=== PATIENT | female | born 1950 | race Caucasian/White ===

== ENCOUNTER 2017-01-21 21:24 | Inpatient (IN) | payer OTHER, MEDICARE ==
[~2017-01-21] VITALS: Ht 165.1 cm; Wt 65.8 kg
--- NOTE | ~2017-01-21 | EKG ---
[address] [employer] 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
[2017-01-21 21:24] VITALS: BP 143/83
[2017-01-21 23:06] LABS: ABSOLUTE NEUTROPHILS 7.2 thou/uL (1.4-8.2); BASOPHILS 0.3 % (0.0-2.0); EOSINOPHILS 0.3 % (0.0-3.0); HEMATOCRIT 23.6 % (37.0-47.0); HEMOGLOBIN 7.9 gm/dL (12.0-15.0); MCH 31.3 pg (26.0-34.0); MCHC 33.6 g/dL (28.0-37.0); MCV 93.3 fL (80.0-100.0); MONOCYTES 5.8 % (1.0-8.0); PLATELET COUNT 316 thou/uL (150-400); POLYS 79.6 % (36.0-66.0); RBC 2.53 mil/uL (4.20-5.00); RDW 15.5 % (10.5-14.5); WBC 9.1 thou/uL (4.0-11.0)
[2017-01-21 23:14] LABS: MANUAL DIFF NO
[2017-01-21 23:21] LABS: CALCIUM 8.2 mg/dL (8.5-10.1); CREATININE 0.7 mg/dL (0.6-1.0)
[2017-01-21 23:26] LABS: ALBUMIN 3.1 g/dL (3.4-5.0); TOTAL BILIRUBIN 0.2 mg/dL (<0.1-1.0); TOTAL PROTEIN 6.8 g/dL (6.4-8.2)
[2017-01-21 23:32] VITALS: BP 137/74
[2017-01-22 00:06] LABS: PROTIME 9.9 Seconds (9.3-11.4)
[2017-01-22] MEDS ORDERED: ACETAMINOPHEN500 M1 PO (00:48)
[2017-01-22] MEDS ORDERED: XANAX 0.25 MG0.25 MG PO (00:49)
[2017-01-22] MEDS ORDERED: AZATHIOPRINE50 MG PO ×2 (00:51→00:52)
[2017-01-22] MEDS ORDERED: LUBRICANT EYE1 EACH OP (00:53)
[2017-01-22] MEDS ORDERED: KEFLEX500 MG PO (00:54)
[2017-01-22] MEDS ORDERED: FLEXERIL PO (00:55)
[2017-01-22] MEDS ORDERED: FOLIC ACID1 MG PO (00:56)
[2017-01-22] MEDS ORDERED: HYDROCODONE-APA1 TA1 PO (00:56)
[2017-01-22] MEDS ORDERED: LOMOTIL TABLET1 EACH PO (00:56)
[2017-01-22] MEDS ORDERED: HYDROXYCHLOROQ200 M1 PO (00:57)
[2017-01-22] MEDS ORDERED: METHOTREXATE 22.5 MG INJECTION (00:58)
[2017-01-22] MEDS ORDERED: OMEPRAZOLE20 M2 PO (00:59)
[2017-01-22] MEDS ORDERED: PREDNISONE 5 MG5 M1 PO (01:00)
[2017-01-22] MEDS ORDERED: SYSTANE 0.3-0.1 EACH OP (01:01)
[2017-01-22] MEDS ORDERED: BIOTENE MOIST44.3 ML MM (01:02)
[2017-01-22 04:01] VITALS: BP 128/72
[2017-01-22 05:17] LABS: HEMOGLOBIN 7.4 gm/dL (12.0-15.0); MCH 31.3 pg (26.0-34.0); MCHC 33.5 g/dL (28.0-37.0); MCV 93.4 fL (80.0-100.0); RBC 2.36 mil/uL (4.20-5.00); RDW 15.1 % (10.5-14.5); WBC 7.7 thou/uL (4.0-11.0)
[2017-01-22 07:29] VITALS: BP 128/77
[2017-01-22 15:46] VITALS: BP 142/80
[2017-01-22 18:40] VITALS: BP 140/94
[2017-01-23 04:00] VITALS: BP 135/79
[2017-01-23 05:35] LABS: HEMATOCRIT 23.7 % (37.0-47.0); HEMOGLOBIN 8.1 gm/dL (12.0-15.0); MCH 31.9 pg (26.0-34.0); MCHC 34.2 g/dL (28.0-37.0); MCV 93.2 fL (80.0-100.0); RBC 2.54 mil/uL (4.20-5.00); RDW 14.9 % (10.5-14.5); WBC 6.7 thou/uL (4.0-11.0)
[2017-01-23 09:05] VITALS: BP 131/80
[2017-01-23 19:39] VITALS: BP 138/80
[2017-01-24 04:20] VITALS: BP 127/78
[2017-01-24 05:56] LABS: HEMATOCRIT 25.2 % (37.0-47.0); HEMOGLOBIN 8.5 gm/dL (12.0-15.0); MCH 31.4 pg (26.0-34.0); MCHC 33.6 g/dL (28.0-37.0); MCV 93.4 fL (80.0-100.0); RBC 2.7 mil/uL (4.20-5.00); RDW 15.4 % (10.5-14.5); WBC 7.3 thou/uL (4.0-11.0)
[2017-01-24 08:30] VITALS: BP 137/84
[2017-01-24 15:53] VITALS: BP 130/85
[2017-01-24 19:23] VITALS: BP 126/73
[2017-01-25 04:00] VITALS: BP 118/69
[2017-01-25 07:56] VITALS: BP 132/78
[2017-01-25] MEDS ORDERED: HYDROCODONE-APA1 TA1 PO (13:48)
[2017-01-25 14:39] VITALS: BP 132/78
[2017-01-25 14:44] VITALS: BP 132/78
[2017-01-25 14:47] VITALS: BP 132/78
== END 2017-01-25 15:15 | disposition home health service (06) | DRG 536 ==
LOC: ER 21:24 → EROBS 22:28 → 5S 22:28
PROVIDERS: Hospitalist; Nurse Practitioner Family
DX: S72.111A Displaced fracture of greater trochanter of right femur, initial encounter for closed fracture (principal); D62 Acute posthemorrhagic anemia; M97.01XA Periprosthetic fracture around internal prosthetic right hip joint, initial encounter; S72.121A Displaced fracture of lesser trochanter of right femur, initial encounter for closed fracture; M25.461 Effusion, right knee; Z96.641 Presence of right artificial hip joint; W18.30XA Fall on same level, unspecified, initial encounter; Z90.49 Acquired absence of other specified parts of digestive tract; Z90.710 Acquired absence of both cervix and uterus; Z90.721 Acquired absence of ovaries, unilateral; Z88.2 Allergy status to sulfonamides; Z79.899 Other long term (current) drug therapy; Y93.89 Activity, other specified; Y92.89 Other specified places as the place of occurrence of the external cause; Y99.8 Other external cause status
CPT/HCPCS: 10086

== ENCOUNTER → 2017-05-27 | Outpatient (CLI) | payer OTHER, MEDICARE ==
[~2017-05-27] MED LIST: ACETAMINOPHEN500 M1 PO; AZATHIOPRINE50 MG PO; BIOTENE MOIST44.3 ML MM; FLEXERIL PO; FOLIC ACID1 MG PO; HYDROCODONE-APA1 TA1 PO; HYDROXYCHLOROQ200 M1 PO; KEFLEX500 MG PO; LOMOTIL TABLET1 EACH PO; LUBRICANT EYE1 EACH OP; METHOTREXATE 22.5 MG INJECTION; OMEPRAZOLE20 M2 PO; PREDNISONE 5 MG5 M1 PO; SYSTANE 0.3-0.1 EACH OP; XANAX 0.25 MG0.25 MG PO
== END ==
LOC: CAT 11:23
DX: S72.91XD Unspecified fracture of right femur, subsequent encounter for closed fracture with routine healing (principal); X58.XXXD Exposure to other specified factors, subsequent encounter

== ENCOUNTER 2017-08-01 20:29 | Inpatient (IN) | payer OTHER, MEDICARE ==
[~2017-08-01] VITALS: Ht 165.1 cm; Wt 63.5 kg
--- NOTE | ~2017-08-01 | HC ---
[facility] [place] [address] CONSULTATION Name: ANDRE LINDO Room #: 242-P [facility] IN M.R.#: [id number] Admission: 08/01/17 Attend Phys: Christian Guillermo MD Discharge: Date of : 50 Report #: [id number] THIS REPORT FOR: //name// CC: Christian TREVIÑO PCP PULMONARY CONSULTATION REFERRING PHYSICIAN: Dr. Guillermo. REASON FOR REFERRAL: Acute respiratory failure. HISTORY OF PRESENT ILLNESS: The patient is a 67-year-old white female who presented to Emergency Room with altered mental status. She was found dyspneic, hypoxic. She was subsequently intubated. A Pulmonary consultation was requested. She was also found to be influenza A positive. Chest x-ray shows a right lower lobe infiltrates. PAST MEDICAL HISTORY: Notable for rheumatoid arthritis, ulcerative colitis and anxiety disorder. PAST SURGICAL HISTORY: Past history of bowel obstruction, appendectomy, total hysterectomy, left oophorectomy and right hip surgery. ALLERGIES: SULFA, REACTIONS NOT SPECIFIED. MEDICATIONS: Home medication list reviewed. This includes prednisone 5 mg once a day, methotrexate, hydroxychloroquine, azithromycin, omeprazole, folic acid, Flexeril and lorazepam. FAMILY HISTORY: Noncontributory. SOCIAL HISTORY: She is a lifetime nonsmoker. Denies any alcohol use. REVIEW OF SYSTEMS: Deferred as the patient is intubated. PHYSICAL EXAMINATION: GENERAL: On exam, she is sedated. VITAL SIGNS: Her temperature maximum is 100.3 degrees Fahrenheit, pulse is 120, respiratory rate is 38, blood pressure 140/69 mmHg and saturation 100%. HEENT: Normocephalic, atraumatic. NECK: Supple, without lymphadenopathy or thyromegaly. CHEST: Breath sounds are fair anteriorly, without any obvious rales or wheezes. CARDIOVASCULAR: Normal S1, S2. There are no murmurs or gallops. There is no [facility] [address] [place] [address] CONSULTATION Name: ANDRE LINDO Room #: 242-[facility] IN [facility]#: [id number] Admission: 08/01/17 Attend Phys: Christian Guillermo MD Discharge: Date of : 50 Report #: [id number] JVD. There is no carotid bruit. Pulses are 2+/4+ bilaterally. ABDOMEN: Soft, nontender. No organomegaly or masses felt. GENITOURINARY: Deferred. RECTAL: Deferred. EXTREMITIES: There is no edema, cyanosis or clubbing. LABORATORY DATA: Chest x-ray again shows mild right lower lobe infiltrates. ET tube is in the appropriate position. The patient is positive for C. diff toxin. Legionella and Streptococcus antigens were negative. The patient is positive for influenza A. U/A shows few bacteria. Sodium 139, potassium 3.5, chloride 103, CO2 is 20, BUN is 15 and creatinine 0.9. Liver function enzymes are mildly elevated. WBC 11,900, hemoglobin is 12 and platelets are normal. No significant bandemia. Albumin 3.2. Arterial blood gas revealed pH of 7.30, pCO2 of 28 and pO2 of 400 on FiO2 100%. IMPRESSION: 1. Acute hypoxic respiratory failure in this 67-year-old white female due to influenza A and possible concomitant bacterial pneumonia involving the right lower lobe. 2. Metabolic acidosis due to severe sepsis. 3. Hyponatremia, hypokalemia. 4. Rheumatoid arthritis, on methotrexate and Plaquenil. 5. Ulcerative colitis. 6. Clostridium difficile colitis. RECOMMENDATIONS: I agree with broad-spectrum antibiotics. Continue mechanical ventilation. The patient should be monitored closely for possible opportunistic infection given the immunosuppressed status. DVT and GI prophylaxis will be addressed. Discussed findings with the patient's family. <ELECTRONICALLY SIGNED> By: Sage Turcios MD 08/03/17 1548 1638 0004 Sage Turcios MD /nt
--- NOTE | ~2017-08-01 | EKG ---
[place] [address] [facility] [facility] [place] [address] ELECTROCARDIOGRAM REPORT Name: RON LINDOILIA Steve Room #: 170-12 ADM IN M.R.#: [id number] Admission: 08/01/17 Attend Phys: Christian Guillermo MD Discharge: Date of : 50 Report #: [id number] THIS REPORT FOR: //name// [facility] ED Test Date: 2017-08-01 Test Time: 21:20:05 Pat Name: ANDRE LINDO Department: Room: 170 Gender: F Internet Marketing Manager: MZOOK : 1950 Requested By: Mary Ellis Order Number: [id number] MD: Jason Vázquez Measurements Intervals [place] Rate: 121 P: 53 WV: 122 QRS: 68 QRSD: 86 T: -4 QT: 311 QTc: 442 Interpretive Statements Sinus tachycardia Abnormal R-wave progression, early transition Nonspecific ST segment abnormality Compared to ECG 01/21/2017 22:30:[address] segment abnormality is now present Electronically Signed On 08-02-2017 8:53:10 [employer] by Jason Vázquez [email or web address] <ELECTRONICALLY SIGNED> By: Jason Vázquez MD, [facility] 08/02/17 0853 19 19 Jason Vázquez MD, [facility] /EPI
--- NOTE | ~2017-08-01 | HC ---
[facility] [address] CONSULTATION Name: ANDRE LINDO Room #: 448-P ADM IN M.R.#: [id number] Admission: 08/01/17 Attend Phys: Christian Guillermo MD Discharge: Date of : 50 Report #: [id number] THIS REPORT FOR: //name// CC: Christian TREVIÑO PCP DATE OF SERVICE: 08/02/2017 REFERRING PROVIDER: Christian Guillermo MD REASON FOR CONSULTATION: Respiratory failure. CHIEF COMPLAINT: Shortness of breath. HISTORY OF PRESENT ILLNESS: Our group was asked to see the patient in consultation while hospitalized at [facility]. I was called at 4:02 to provide consultation. The patient is seen in the ICU and discussed with family as well as with nursing. She is a 67-year-old woman who presented to the emergency department last evening with altered mental status and had been having some cough and generalized weakness. states she went to work, she has not been eating or drinking well for 2 days, came back home, was poorly responsive and confused, brought to the Emergency Department, she was noted to have an acidosis as well as a pulmonary infiltrate, influenza positive, was treated overnight with fluids and antibiotics; however, became more tachypneic this morning, required noninvasive positive pressure ventilation with BiPAP and then subsequently intubated. The patient is apparently on chronic steroids and possible other immunosuppressives for ulcerative colitis and rheumatoid arthritis, but the family cannot tell me what medication she is on at this time. The patient had diarrhea in the emergency department. C. diff toxin was also positive. Upon transfer to the ICU, we were contacted to come and evaluate the patient. The patient has already received antibiotics as described, IV fluids, 2 liter bolus at 125 an hour. ALLERGIES: INCLUDE SULFA. PAST MEDICAL HISTORY: 1. History of ulcerative colitis "burned out" per prior records. 2. History of rheumatoid arthritis. 3. History of femur fracture. 4. Remote history of tobacco use. 5. History of immunosuppressive therapy for above autoimmune diseases. 6. History of left nephrectomy. 7. History of total hip arthroplasty for septic necrosis. 8. History of abdominal hysterectomy and oophorectomy. [facility] [address] [place] [address] CONSULTATION Name: ANDRE LINDO Room #: 448-P [facility] IN [facility].#: [id number] Admission: 08/01/17 Attend Phys: Christina Guillermo MD Discharge: Date of : 50 Report #: [id number] OUTPATIENT MEDICATIONS: Family is uncertain of the medications the patient is taking, outpatient medications per Emergency Department reported as: 1. Azathioprine. 2. Xanax. 3. Tylenol. 4. Lubricant eyedrops. 5. Flexeril. 6. Lomotil. 7. Folic acid. 8. Hydroxychloroquine. 9. Methotrexate. 10. Prednisone. 11. Biotin. 12. Omeprazole. SOCIAL HISTORY: Remote smoker, quitting over 20 years ago. No alcohol consumption. Currently retired. FAMILY HISTORY: Unobtainable. REVIEW OF SYSTEMS: Except as described, unobtainable due to the patient's current status, being sedated on mechanical ventilator. PHYSICAL EXAMINATION: VITAL SIGNS: Afebrile, pulse 100, respiratory rate is 24 set on the ventilator, and blood pressure 107/64. GENERAL: This is an elderly woman, sedated, in no distress. ENT: Endotracheal tube in place. NECK: Supple, no lymphadenopathy. LUNGS: Minimal basilar crackles, no wheezes. CARDIOVASCULAR: Heart regular. No murmurs noted. ABDOMEN: Soft. Diminished bowel sounds. EXTREMITIES: Reveal diminished pulses, no edema. INTEGUMENT: No significant rash identified. LABS: White blood cell count 12,000, hemoglobin 11, hematocrit 34, and platelet count 283. Sodium 138, potassium 3.0, chloride 107, bicarbonate 15, BUN is 9, creatinine 0.5, glucose 129, and calcium 7.3. Most recent arterial blood gas on assist control, tidal volume 450, FiO2 100%, PEEP of 5, rate of 24, reveals pH 7.30, pCO2 of 20, pO2 of 401, bicarbonate 14. C. diff toxin is positive. Urinalysis positive for urine ketones, slight blood, bilirubin, no leukocytes. Liver enzymes only minimally elevated on initial labs. IMPRESSION: 1[place] [address] CONSULTATION Name: ANDRE LINDO Room #: 448-P [facility] IN M.R.#: [id number] Admission: 08/01/17 Attend Phys: Christian Guillermo MD Discharge: Date of : 50 Report #: [id number] 2. Pulmonary infiltrates consistent with community-acquired pneumonia or even a post-influenza infection most likely right lower lobe on radiographs. 3. Clostridium difficile colitis. 4. History of ulcerative colitis. 5. History of rheumatoid arthritis. 6. Immunocompromised status. 7. Severe metabolic acidosis given the constellation above. SUGGEST: 1. ICU care. 2. Continue mechanical ventilatory support. 3. Continue high rate IV fluids, consider changing to Ringer's lactate due to acidosis and hypokalemia. 4. Check CT abdomen and pelvis, no IV contrast given, the patient has a single kidney. 5. Infectious disease consultation to assist with management of multiple infectious processes in this immunocompromised host. 6. Follow up arterial blood gas and radiograph in a.m. 7. Central venous catheter insertion, we prefer PICC line at this point. 8. Consider beginning sepsis protocol. The patient has already received IV fluids and antibiotics, we would trend laboratories. 9. Additional recommendations to follow. Total critical care time was 45 minutes, not including any procedures, the patient was seen and evaluated due to nursing report, no pulmonary intervention to this point. <ELECTRONICALLY SIGNED> By: Orlin Gore MD 08/10/17 1824 1654 0831 Orlin Gore MD /nt
--- NOTE | ~2017-08-01 | HC ---
[facility] [place] [address] CONSULTATION Name: ANDRE LINDO Room #: 448-P [facility] IN .R.#: [id number] Admission: 08/01/17 Attend Phys: Christian Guillermo MD Discharge: Date of : 50 Report #: [id number] THIS REPORT FOR: //name// CC: Christian TREVIÑO [facility] DATE OF SERVICE: 08/08/2017 HISTORY OF PRESENT ILLNESS: The patient is a 67-year-old white female originally admitted with acute mental status changes, confused, incontinent, was noted to have multiple diarrheal stools. She had acute respiratory failure, was noted to have MSSA pneumonia, sepsis, was intubated and mechanically ventilated for acute hypoxic respiratory failure. She also was noted to have C. diff colitis. She has gradually improved, has been extubated, feeling much better. She has been on occasion is up on 4 liters nasal prong O2. She is currently on room air. We are seeing her in rehabilitation medicine consultation. PAST MEDICAL AND SURGICAL HISTORY: Includes rheumatoid arthritis, ulcerative colitis, and bowel obstruction. She was immunosuppressed with her noted comorbidities. She has had a bowel obstruction, right hip fracture without surgery, total hysterectomy, left ovary removed. PAST SURGICAL HISTORY: As noted above. ALLERGIES: SULFA IS LISTED. HABITS: No history of tobacco or alcohol abuse. SOCIAL HISTORY: Lives in a house with her , used a cane or walker, one step. Her is retired, but he goes out into the country every other day per his history. There is a [id number] that is retired that could assist as well. REVIEW OF SYSTEMS: Did not offer any current complaints of chest pain, shortness of breath, or abdominal discomfort. She used to use a walker or a cane for her right femur fracture, but was no longer utilizing that prior to admission. Denied any focal distal lower extremity or proximal lower extremity pain complaints. PHYSICAL EXAMINATION: GENERAL: A 67-year-old white female, in no obvious distress. The patient is alert. VITAL SIGNS: Last recorded temperature is 97.7, pulse 94, respirations 20, blood pressure 157/72. HEENT: Appeared to be benign. [address] [address] CONSULTATION Name: ANDRE LINDO Room #: 448-P [facility] IN ..#: [id number] Admission: 08/01/17 Attend Phys: Christian Guillermo MD Discharge: Date of : 50 Report #: [id number] NEUROLOGIC: Cranial nerves are grossly intact. Facies are symmetric. She appears appropriate with basic conversational speech. She has functional range of motion of both upper extremities with strength of grade 4+/5. DTRs are trace to 1. Lower extremities, no focal calf swelling, functional range of motion with strength of grade 4 to 4+/5. DTRs are trace to 1. She did transfer today with standby assistance and ambulated 110 feet min assist. ASSESSMENT: A 67-year-old white female with the following problem list: 1. Acute mental status changes with encephalopathy that has improved. 2. Dysphagia, still currently on nectar thickened liquids. 3. Methicillin-susceptible Staphylococcus aureus pneumonia. 4. Sepsis. 5. Acute hypoxemic respiratory failure. 6. Influenza A. 7. Clostridium difficile colitis. 8. History of rheumatoid arthritis. 9. History of ulcerative colitis. 10. Immunosuppressed status. PLAN: She is improving with overall functional mobility and ADLs. Speech therapy is working with her as she is still on the nectar thickened liquids. She does not desire to do any inpatient rehabilitation and her is here as well as her [id number] and they note that they would be able to assist her and be with her if needed within the home setting. They are open to some home healthcare. She is progressing in therapies and would seem reasonable that she should be able to return directly home with home healthcare in the near future as she further stabilizes medically. Again, she is not desiring of an acute rehab stay and appears to be progressing well with her functional therapies. I would anticipate she would be able to be discharged directly home with home healthcare, but we will continue to follow for now. Discussion was held with the patient and her and [id number]. <ELECTRONICALLY SIGNED> By: José Ahmadi MD 08/09/17 1109 1317 4515 José Ahmadi MD /[facility]
--- NOTE | ~2017-08-01 | HC ---
[facility] [place] [address] CONSULTATION Name: ANDRE LINDO Room #: 242-P [facility] IN M.R.#: [id number] Admission: 08/01/17 Attend Phys: Christian Guillermo MD Discharge: Date of : 50 Report #: [id number] THIS REPORT FOR: //name// CC: Christian Barnett NO PCP INFECTIOUS DISEASE CONSULTATION ATTENDING PHYSICIAN: Christian Guillermo MD HISTORY OF PRESENT ILLNESS: The patient is a 67-year-old white woman admitted through the Emergency Room with altered mental status and significant dyspnea. The patient was recently evaluated in the Emergency Room with history of abdominal pain. The patient was discharged home, to be reevaluated in the Emergency Room on 08/01 and admitted with right-sided pneumonia. She goes on developing respiratory failure requiring orotracheal intubation and mechanical ventilation. Her studies revealed right basilar infiltrate, positive stool for Clostridium difficile toxin. ID opinion requested regarding these issues. PAST MEDICAL HISTORY: Positive for possible rheumatoid arthritis and treatment, the patient's family believes at [facility] where she is receiving prednisone, methotrexate and hydroxychloroquine. She is status post appendectomy, hysterectomy, left oophorectomy. Question history of ulcerative colitis as well. ALLERGIES: SULFA DRUGS. MEDICATIONS: She is on treatment with chlorhexidine oral care, potassium and magnesium supplementation per protocol, subcutaneous enoxaparin, methylprednisolone 62.5 mg IV every 8 hours, acetaminophen 650 p.o. q.i.d. -- feeding tube q.i.d. p.r.n. She is receiving oseltamivir 75 mg b.i.d., Rocephin 1 gram IV daily and azithromycin 500 mg IV daily. SOCIAL HISTORY: Unable to obtain, patient intubated. FAMILY HISTORY: Unable to obtain. REVIEW OF SYSTEMS: Unable to obtain. PHYSICAL EXAMINATION: GENERAL: A well-developed woman, not toxic looking, sedated, no distress, intubated through oral cavity. VITAL SIGNS: Presenting following vital signs, temperature 100.3 on 08/01 at , afebrile thereafter, pulse 100, respirations 24, BP 107/64. HEENMT: Head normocephalic, atraumatic. Pupils reactive. Mouth unable to [facility] [address] [place] [address] CONSULTATION Name: ANDRE LINDO Room #: 242-P [facility] IN [facility].#: [id number] Admission: 08/01/17 Attend Phys: Christian Guillermo MD Discharge: Date of : 50 Report #: [id number] examine because of orotracheal intubation. NECK: Supple. LUNGS: Rhonchi, crackles, right lung base. HEART: S1, S2. No gallop or murmur. ABDOMEN: With surgical scars, soft, no masses or megaly. PELVIC AND RECTAL: Deferred. The patient has Prado catheter in place as well as rectal tube in place with liquid stools draining freely. EXTREMITIES: Reveal no clubbing, cyanosis, pretibial edema. NEUROLOGIC: Unable to evaluate. LABORATORY DATA: Sodium 138, potassium 3, chloride 107, BUN 9, creatinine 0.5, glucose 129, calcium 7.3. On admission, her albumin is 3.2 g/dL. A urine toxicologic screen is negative. The white blood cell count on admission is 11,900, hemoglobin 12 g/dL and platelets 291,000. Repeat CBC today revealed a white blood cell count had jumped up to 17,900, hemoglobin has dropped to 9.5 g/dL and platelets are 238,000 with white blood cell count differential revealed 95% segmented neutrophils. The MRSA screen negative. The C. difficile toxin assay positive. The urinalysis revealed 1+ protein, 2+ ketones, 1+ bilirubin, positive ETO test and 2+ blood. The microscopic exam revealed bacteriuria. ABGs on admission revealed pH 7.386, pCO2 of 28, pO2 of 123, bicarbonate 16.5. Lactate 1.06. These set of gases is on nonrebreathing mask at 100% O2. MICROBIOLOGY DATA: Urine culture on 06/30/2017 revealed greater than 100,000 colonies of E. coli and extended beta lactamase organism resistant to ceftriaxone. Sputum culture obtained on 08/02 revealed many Staphylococcus aureus, presumptive MSSA. The nasopharyngeal smear is positive for influenza antigen A. RADIOLOGY EVALUATION: Chest x-ray revealed right basilar pulmonary infiltrate. A CT scan of the abdomen and pelvis revealed fatty infiltration of the liver, gallstones, basilar pulmonary atelectasis, minimal infiltrate, small gas collection anterior subcutaneous fat, possibly from subcutaneous injection. ASSESSMENT: 1. Pneumonia, right lung base, possibly related to methicillin-sensitive Staphylococcus aureus. 2. Influenza A infection. 3. Clostridium difficile colitis. 4. Recent Escherichia coli urinary tract infection, extended spectrum beta-lactamase resistant to ceftriaxone. 5. Immunosuppressed host. Receives methotrexate, prednisone and hydroxychloroquine for rheumatoid arthritis. 6. Hypokalemia. 7. Fatty liver. 8. Gallstones with abnormal urinalysis, indicating possibility of recent passage of gallstone. [address] [address] CONSULTATION Name: ANDRE LINDO Room #: 242-P ADM IN .R.#: [id number] Admission: 08/01/17 Attend Phys: Christian Guillermo MD Discharge: Date of : 50 Report #: [id number] SUGGESTIONS: We will continue coverage with azithromycin. We will discontinue Rocephin in view of previous isolation of ESBL organism. We will start meropenem 1 gram IV every 8 hours. With positive stool for C. difficile toxin, we will add oral vancomycin [address] Guillermo, thank you for requesting my suggestions in the care of your patient. <ELECTRONICALLY SIGNED> By: Edgardo Sinha MD 08/04/17 0959 1059 05 Edgardo Sinha MD /nt
[~2017-08-01 20:29] MED LIST changes: +HYDROCODONE-AP1 EAC6 PO; +KEFLEX500 M1 PO; +PHENERGAN 25 MG25 M1 PO
[2017-08-01 20:30] VITALS: BP 133/167
[2017-08-01 21:16] LABS: HCO3 16.5 mmol/L (22.0-26.0); PCO2 28.2 mmHg (35.0-45.0); PO2 123.5 mmHg (80.0-100.0); pH 7.386 (7.360-7.450); sO2 98.5 % (92.0-98.0)
[2017-08-01 22:03] LABS: ABSOLUTE NEUTROPHILS 9.4 thou/uL (1.4-8.2); BASOPHILS 0.8 % (0.0-2.0); EOSINOPHILS 0.1 % (0.0-3.0); HEMATOCRIT 36.9 % (37.0-47.0); LYMPHOCYTES 12.5 % (24.0-44.0); MCH 28.8 pg (26.0-34.0); MCHC 32.5 g/dL (28.0-37.0); MCV 88.6 fL (80.0-100.0); MONOCYTES 7.1 % (1.0-8.0); PLATELET COUNT 291 thou/uL (150-400); POLYS 79.5 % (36.0-66.0); RBC 4.16 mil/uL (4.20-5.00); WBC 11.9 thou/uL (4.0-11.0)
[2017-08-01 22:13] LABS: ANION GAP 16 mmol/L (7-16); BUN 15 mg/dL (7-18); CALCIUM 8.1 mg/dL (8.5-10.1); CHLORIDE 103 mmol/L (98-107); CO2 20 mmol/L (21-32); CREATININE 0.9 mg/dL (0.6-1.0); GLUCOSE 110 mg/dL (74-106); POTASSIUM 3.5 mmol/L (3.5-5.1); SODIUM 139 mmol/L (136-145)
[2017-08-01 22:22] LABS: ALBUMIN 3.2 g/dL (3.4-5.0); SGOT 48 U/L (15-37); SGPT 49 U/L (30-65); TOTAL BILIRUBIN 0.2 mg/dL (<0.1-1.0); TOTAL PROTEIN 7.2 g/dL (6.4-8.2); TROPONIN-I < 0.04 ng/mL (<0.06)
[2017-08-01 23:04] VITALS: BP 105/61; BP 141/71
[2017-08-01 23:46] LABS: URINE BILIRUBIN 1+ (Negative); URINE BLOOD 2+ (Negative); URINE CLARITY CLEAR; URINE COLOR YELLOW; URINE GLUCOSE-RANDOM* NEGATIVE (Negative); URINE KETONES 2+ (Negative); URINE LEUKOCYTES NEGATIVE (Negative); URINE NITRITE NEGATIVE (Negative); URINE PROTEIN (DIPSTICK) 1+ (Negative); URINE SPECIFIC GRAVITY >= 1.030 (1.005-1.035); URINE UROBILINOGEN 0.2 E.U./dl (0.2-1.0)
[2017-08-01 23:54] LABS: AMP/METHAMP Negative (Negative); BARBITURATES Negative (Negative); BENZODIAZEPINES Negative (Negative); COCAINE Negative (Negative); ICTOTEST (BILI CONFIRMATORY) Positive (Negative); METHADONE Negative (Negative); OPIATES Negative (Negative); PCP Negative (Negative)
[2017-08-02] VITALS (16 sets, daily range): BP systolic 100–141; BP diastolic 64–73
[2017-08-02 00:04] LABS: BACTERIA 1-9 Few /HPF (None Seen); CASTS None Seen /LPF (None Seen); CRYSTALS None Seen /LPF (None Seen); MUCUS 0-3 Light strn/LPF (None Seen); SQUAMOUS 0-3 Few /LPF (0-3); URINE RBC 0-2 Rare /HPF (0-2); URINE WBC None Seen /HPF (0-5)
[2017-08-02 04:28] LABS: BE(vivo) -8.1 mmol/L (-2 to +3); PO2 79.3 mmHg (80.0-100.0)
[2017-08-02 04:31] LABS: PCO2 24.8 mmHg (35.0-45.0)
[2017-08-02 06:20] LABS: HEMATOCRIT 34.6 % (37.0-47.0); HEMOGLOBIN 11.2 gm/dL (12.0-15.0); MCH 28.7 pg (26.0-34.0); MCHC 32.4 g/dL (28.0-37.0); MCV 88.7 fL (80.0-100.0); RBC 3.9 mil/uL (4.20-5.00); RDW 17.4 % (10.5-14.5); WBC 11.7 thou/uL (4.0-11.0)
[2017-08-02 06:27] LABS: CALCIUM 7.3 mg/dL (8.5-10.1); CREATININE 0.5 mg/dL (0.6-1.0)
[2017-08-02 06:42] LABS: BE(vivo) -11.1 mmol/L (-2 to +3); HCO3 13.8 mmol/L (22.0-26.0); PCO2 28.2 mmHg (35.0-45.0); PO2 401.1 mmHg (80.0-100.0); sO2 99.8 % (92.0-98.0)
[2017-08-02 06:43] LABS: pH 7.307 (7.360-7.450)
[2017-08-02 19:36] LABS: MAGNESIUM 1.9 mg/dL (1.8-2.4); POTASSIUM 3.1 mmol/L (3.5-5.1)
[2017-08-03] VITALS (24 sets, daily range): BP systolic 85–149; BP diastolic 52–79
[2017-08-03 05:15] LABS: BE(vivo) -9.2 mmol/L (-2 to +3); HCO3 14.8 mmol/L (22.0-26.0); PCO2 26.9 mmHg (35.0-45.0); PO2 94.3 mmHg (80.0-100.0); pH 7.359 (7.360-7.450); sO2 97.1 % (92.0-98.0)
[2017-08-03 07:54] LABS: BASOPHILS 0.1 % (0.0-2.0); HEMATOCRIT 29.2 % (37.0-47.0); HEMOGLOBIN 9.5 gm/dL (12.0-15.0); LYMPHOCYTES 3.1 % (24.0-44.0); MCH 28.8 pg (26.0-34.0); MCHC 32.7 g/dL (28.0-37.0); MCV 88.1 fL (80.0-100.0); MONOCYTES 1.5 % (1.0-8.0); PLATELET COUNT 238 thou/uL (150-400); POLYS 95.3 % (36.0-66.0); RBC 3.32 mil/uL (4.20-5.00); RDW 17.5 % (10.5-14.5); WBC 17.9 thou/uL (4.0-11.0)
[2017-08-03 08:04] LABS: CREATININE 0.4 mg/dL (0.6-1.0); POTASSIUM 3.1 mmol/L (3.5-5.1)
[2017-08-04] VITALS (21 sets, daily range): BP systolic 89–159; BP diastolic 53–108
[2017-08-04 04:54] LABS: ABSOLUTE NEUTROPHILS 18.8 thou/uL (1.4-8.2); BASOPHILS 0.1 % (0.0-2.0); MCH 29.1 pg (26.0-34.0); MCHC 33.3 g/dL (28.0-37.0); MCV 87.5 fL (80.0-100.0); MONOCYTES 2.3 % (1.0-8.0); PLATELET COUNT 225 thou/uL (150-400); POLYS 94.6 % (36.0-66.0); RBC 3.08 mil/uL (4.20-5.00); RDW 17.9 % (10.5-14.5); WBC 19.8 thou/uL (4.0-11.0)
[2017-08-04 05:12] LABS: CALCIUM 7.9 mg/dL (8.5-10.1); CREATININE 0.3 mg/dL (0.6-1.0); POTASSIUM 3.4 mmol/L (3.5-5.1)
[2017-08-04 05:19] LABS: BE(vivo) -6.1 mmol/L (-2 to +3); PCO2 26.8 mmHg (35.0-45.0); PO2 74.7 mmHg (80.0-100.0); pH 7.419 (7.360-7.450); sO2 95.5 % (92.0-98.0)
[2017-08-04 11:23] LABS: BE(vivo) -3.4 mmol/L (-2 to +3); HCO3 19.4 mmol/L (22.0-26.0); PCO2 27.4 mmHg (35.0-45.0); PO2 87.8 mmHg (80.0-100.0); pH 7.468 (7.360-7.450); sO2 97.3 % (92.0-98.0)
[2017-08-05] VITALS (16 sets, daily range): BP systolic 123–168; BP diastolic 64–86
[2017-08-05 04:15] LABS: HEMATOCRIT 28.9 % (37.0-47.0); HEMOGLOBIN 9.5 gm/dL (12.0-15.0); MCH 28.4 pg (26.0-34.0); MCHC 32.8 g/dL (28.0-37.0); MCV 86.4 fL (80.0-100.0); RBC 3.35 mil/uL (4.20-5.00); RDW 17.6 % (10.5-14.5); WBC 17.5 thou/uL (4.0-11.0)
[2017-08-05 04:22] LABS: CREATININE 0.4 mg/dL (0.6-1.0)
[2017-08-05 04:25] LABS: POTASSIUM 2.5 mmol/L (3.5-5.1)
[2017-08-06 00:17] VITALS: BP 157/81
[2017-08-06 02:40] VITALS: BP 158/84
[2017-08-06 09:30] VITALS: BP 156/84
[2017-08-06 15:13] VITALS: BP 160/85
[2017-08-06 16:51] LABS: HEMATOCRIT 32.1 % (37.0-47.0); HEMOGLOBIN 10.6 gm/dL (12.0-15.0); MCH 28.6 pg (26.0-34.0); MCV 86.5 fL (80.0-100.0); PLATELET COUNT 242 thou/uL (150-400); RBC 3.71 mil/uL (4.20-5.00); RDW 17.6 % (10.5-14.5); WBC 10.9 thou/uL (4.0-11.0)
[2017-08-06 17:04] LABS: CALCIUM 8.1 mg/dL (8.5-10.1); CREATININE 0.5 mg/dL (0.6-1.0); POTASSIUM 3.2 mmol/L (3.5-5.1)
[2017-08-06 17:29] LABS: ABSOLUTE NEUTROPHILS 8.7 thou/uL (1.4-8.2); ATYPICAL LYMPHS 2 %; NUCLEATED RBCS 3 /100WBC
[2017-08-06 17:30] LABS: POLYCHROMASIA SLIGHT
[2017-08-06 20:32] VITALS: BP 171/93
[2017-08-07 05:08] VITALS: BP 135/82
[2017-08-07 08:20] VITALS: BP 148/84
[2017-08-07 10:54] LABS: CALCIUM 8.2 mg/dL (8.5-10.1); CREATININE 0.4 mg/dL (0.6-1.0); POTASSIUM 3.8 mmol/L (3.5-5.1)
[2017-08-07 17:08] VITALS: BP 138/83
[2017-08-07 21:21] VITALS: BP 176/88
[2017-08-08 03:14] VITALS: BP 145/74
[2017-08-08 05:23] LABS: HEMATOCRIT 32.6 % (37.0-47.0); HEMOGLOBIN 10.7 gm/dL (12.0-15.0); MCH 28.5 pg (26.0-34.0); MCHC 32.8 g/dL (28.0-37.0); MCV 86.9 fL (80.0-100.0); PLATELET COUNT 308 thou/uL (150-400); RBC 3.75 mil/uL (4.20-5.00); WBC 9.3 thou/uL (4.0-11.0)
[2017-08-08 05:30] LABS: CREATININE 0.5 mg/dL (0.6-1.0)
[2017-08-08 06:52] LABS: ABSOLUTE NEUTROPHILS 7.9 thou/uL (1.4-8.2); ANISOCYTOSIS 2+; ATYPICAL LYMPHS 1 %; MACROCYTES 1+; METAMYELOCYTES 1 %; MYELOCYTES 2 %; NUCLEATED RBCS 4 /100WBC; POLYCHROMASIA OCCASIONAL
[2017-08-08 08:36] VITALS: BP 157/72
[2017-08-08 14:38] LABS: CALCIUM 8.3 mg/dL (8.5-10.1); CREATININE 0.6 mg/dL (0.6-1.0); POTASSIUM 3.4 mmol/L (3.5-5.1)
[2017-08-08 15:58] VITALS: BP 137/92
[2017-08-08 20:32] VITALS: BP 148/83
[2017-08-09 03:09] LABS: HEMATOCRIT 29.9 % (37.0-47.0); HEMOGLOBIN 9.8 gm/dL (12.0-15.0); MCHC 32.9 g/dL (28.0-37.0); MCV 88.2 fL (80.0-100.0); PLATELET COUNT 268 thou/uL (150-400); RBC 3.39 mil/uL (4.20-5.00); WBC 9.7 thou/uL (4.0-11.0)
[2017-08-09 03:15] LABS: CALCIUM 7.9 mg/dL (8.5-10.1); CREATININE 0.5 mg/dL (0.6-1.0); POTASSIUM 3.5 mmol/L (3.5-5.1)
[2017-08-09 03:52] VITALS: BP 137/77
[2017-08-09 06:25] LABS: ABSOLUTE NEUTROPHILS 7.8 thou/uL (1.4-8.2); METAMYELOCYTES 2 %; MYELOCYTES 2 %; NUCLEATED RBCS 2 /100WBC
[2017-08-09 06:27] LABS: ANISOCYTOSIS 1+; LARGE PLATELETS OCCASIONAL; POLYCHROMASIA 1+; TOXIC GRANULATION 1+
[2017-08-09 08:00] VITALS: BP 155/84
[2017-08-09 16:00] VITALS: BP 138/81
[2017-08-09 20:43] VITALS: BP 134/84
[2017-08-10 03:21] VITALS: BP 137/72
[2017-08-10 07:36] VITALS: BP 153/64
[2017-08-10 11:37] VITALS: BP 136/71
[2017-08-10 14:47] VITALS: BP 134/84
[2017-08-10 20:06] VITALS: BP 142/73
[2017-08-11 05:09] VITALS: BP 126/78
[2017-08-11 08:29] VITALS: BP 123/67
[2017-08-11 11:40] LABS: HEMATOCRIT 32.9 % (37.0-47.0); HEMOGLOBIN 10.8 gm/dL (12.0-15.0); MCH 28.6 pg (26.0-34.0); MCHC 32.8 g/dL (28.0-37.0); MCV 87.3 fL (80.0-100.0); RBC 3.77 mil/uL (4.20-5.00); RDW 16.8 % (10.5-14.5); WBC 9.8 thou/uL (4.0-11.0)
[2017-08-11] MEDS ORDERED: PREDNISONE 5 MG5 M1 PO (11:46)
[2017-08-11] MEDS ORDERED: OMEPRAZOLE20 M2 PO (11:46)
[2017-08-11] MEDS ORDERED: ACIDOPHILUS1 EAC4 PO (11:46)
[2017-08-11 11:48] LABS: CALCIUM 8.2 mg/dL (8.5-10.1); CREATININE 0.4 mg/dL (0.6-1.0)
[2017-08-11 11:50] LABS: POTASSIUM 2.8 mmol/L (3.5-5.1)
[2017-08-11 16:34] VITALS: BP 128/80
[2017-08-11 17:33] LABS: CALCIUM 8.5 mg/dL (8.5-10.1); CREATININE 0.5 mg/dL (0.6-1.0); POTASSIUM 4.5 mmol/L (3.5-5.1)
[2017-08-11 20:01] VITALS: BP 117/66
[2017-08-12 04:52] VITALS: BP 114/80
[2017-08-12 05:00] LABS: HEMOGLOBIN 11.4 gm/dL (12.0-15.0); MCH 28.8 pg (26.0-34.0); MCHC 32.6 g/dL (28.0-37.0); MCV 88.5 fL (80.0-100.0); RBC 3.96 mil/uL (4.20-5.00); RDW 17.1 % (10.5-14.5); WBC 8.5 thou/uL (4.0-11.0)
[2017-08-12 05:09] LABS: CALCIUM 8.5 mg/dL (8.5-10.1); CREATININE 0.5 mg/dL (0.6-1.0); MAGNESIUM 2.2 mg/dL (1.8-2.4); POTASSIUM 4.5 mmol/L (3.5-5.1)
[2017-08-12 07:22] VITALS: BP 116/67
[2017-08-12] MEDS ORDERED: VANCOMYCIN HCL10 GM PO (09:19)
[2017-08-12] MEDS ORDERED: HYDROCODONE-AP1 EAC6 PO (09:20)
[2017-08-12 10:20] VITALS: BP 134/71
[2017-08-12 11:53] VITALS: BP 134/71
== END 2017-08-12 13:56 | disposition home or self-care (01) | DRG 871 ==
LOC: ER 20:29 → EROBS 22:34 → ICU 22:34 → EROBS 22:34 → ICU 08-02 15:40 → 4S 08-06 00:15
PROVIDERS: Family Medicine; Hospitalist; Internal Medicine; Internal Medicine Infectious Disease; Internal Medicine Pulmonary Disease; Nurse Practitioner Acute Care; Nurse Practitioner Family; Physician Assistant
DX: A41.9 Sepsis, unspecified organism (principal); J96.01 Acute respiratory failure with hypoxia; J10.08 Influenza due to other identified influenza virus with other specified pneumonia; J15.211 Pneumonia due to Methicillin susceptible Staphylococcus aureus; G92 Toxic encephalopathy; E87.1 Hypo-osmolality and hyponatremia; A04.72 Enterocolitis due to Clostridium difficile, not specified as recurrent; E87.4 Mixed disorder of acid-base balance; E87.0 Hyperosmolality and hypernatremia; N39.0 Urinary tract infection, site not specified; M06.9 Rheumatoid arthritis, unspecified; F41.9 Anxiety disorder, unspecified; R65.20 Severe sepsis without septic shock; K76.0 Fatty (change of) liver, not elsewhere classified; D64.9 Anemia, unspecified; B96.20 Unspecified Escherichia coli [E. coli] as the cause of diseases classified elsewhere; Z16.12 Extended spectrum beta lactamase (ESBL) resistance; K80.20 Calculus of gallbladder without cholecystitis without obstruction; G89.29 Other chronic pain; E87.6 Hypokalemia; Z96.641 Presence of right artificial hip joint; Z90.710 Acquired absence of both cervix and uterus; Z90.721 Acquired absence of ovaries, unilateral; Z90.49 Acquired absence of other specified parts of digestive tract; Z79.52 Long term (current) use of systemic steroids; Z79.899 Other long term (current) drug therapy; Z87.81 Personal history of (healed) traumatic fracture; Z87.891 Personal history of nicotine dependence; Z90.5 Acquired absence of kidney; Z87.19 Personal history of other diseases of the digestive system; Z88.2 Allergy status to sulfonamides
CPT/HCPCS: 10078; 10100; 27000

== ENCOUNTER → 2017-08-18 | Outpatient (CLI) | payer OTHER, MEDICARE ==
[~2017-08-18] MED LIST changes: +ACIDOPHILUS1 EAC4 PO; +VANCOMYCIN HCL10 GM PO
== END ==
LOC: RAD 15:04
DX: J18.9 Pneumonia, unspecified organism (principal); J98.11 Atelectasis; R91.8 Other nonspecific abnormal finding of lung field

== ENCOUNTER 2018-11-29 02:31 | Inpatient (IN) | payer OTHER, MEDICARE ==
[~2018-11-29] VITALS: Ht 167.6 cm; Wt 64.4 kg
[2018-11-29 02:32] VITALS: BP 121/71
[2018-11-29 03:06] LABS: HEMATOCRIT 36.8 % (37.0-47.0); MCH 27.7 pg (26.0-34.0); MCHC 32.6 g/dL (28.0-37.0); MCV 84.7 fL (80.0-100.0); PLATELET COUNT 280 thou/uL (150-400); RBC 4.34 mil/uL (4.20-5.00); RDW 18.7 % (10.5-14.5); WBC 17.2 thou/uL (4.0-11.0)
[2018-11-29 03:10] LABS: CREATININE 0.8 mg/dL (0.6-1.0); POTASSIUM 3.2 mmol/L (3.5-5.1)
[2018-11-29 03:16] LABS: ALBUMIN 3.2 g/dL (3.4-5.0); DIRECT BILIRUBIN 0.2 mg/dL (<0.1-0.3); TOTAL BILIRUBIN 0.9 mg/dL (<0.1-1.0); TOTAL PROTEIN 7.5 g/dL (6.4-8.2)
[2018-11-29 03:32] LABS: URINE BILIRUBIN NEGATIVE (Negative); URINE BLOOD 3+ (Negative); URINE CLARITY CLEAR; URINE COLOR YELLOW; URINE GLUCOSE-RANDOM* NEGATIVE (Negative); URINE KETONES 3+ (Negative); URINE LEUKOCYTES-REFLEX 1+ (Negative); URINE NITRITE-REFLEX POSITIVE (Negative); URINE PROTEIN (DIPSTICK) 2+ (Negative); URINE SPECIFIC GRAVITY 1.025 (1.005-1.035)
[2018-11-29 03:45] LABS: ABSOLUTE NEUTROPHILS 15.7 thou/uL (1.4-8.2)
[2018-11-29 03:49] LABS: ANISOCYTOSIS 2+; PLATELET ESTIMATE NORMAL; POLYCHROMASIA 1+
[2018-11-29 03:57] LABS: SQUAMOUS 0-3 Few /LPF (0-3); WBC CLUMPS Many (None Seen)
[2018-11-29 03:58] LABS: BACTERIA-REFLEX >30 Many /HPF (None Seen); CRYSTALS None Seen /LPF (None Seen); HYALINE CASTS 0-3 Few /LPF (None Seen); MUCUS 4-6 Moderate strn/LPF (None Seen)
[2018-11-29 05:35] VITALS: BP 125/66
[2018-11-29 06:00] VITALS: BP 99/56
[2018-11-29 07:30] VITALS: BP 108/66
--- NOTE | 2018-11-29 08:16 | EKG ---
[address] [address] ELECTROCARDIOGRAM REPORT Name: ANDRE LINDO Room #: 461-P ADM IN M.R.#: [id number] ������������������ Admission: 11/29/18 ������������������ Attend Phys: Phillip Salomon MD Discharge: ������������������ Date of : 50 Report #: [id number] ����������������������������������������������������������������� [id number] THIS REPORT FOR: //name// [facility] ED Test Date: 2018-11-29 Test Time: 02:35:58 Pat Name: ANDRE LINDO Department: Room: 461 Gender: F Plant Nursery Worker: BRET : 1950 Requested By: Ida Gamez Order Number: [id number] MD: Anshul Sinha Measurements Intervals [place] Rate: 119 P: 56 OR: 134 QRS: 73 QRSD: 91 T: -17 QT: 344 QTc: 485 Interpretive Statements Sinus tachycardia Motion artifact Borderline repolarization abnormality Compared to ECG 08/01/2017 21:20:05 Electronically Signed On 11-29-2018 8:16:05 CDT by Anshul Sinha [email or web address] ��������������������������������������������� <ELECTRONICALLY SIGNED> ���������������������������������������� By: Anshul Sinha MD ��������������������������������������������� 11/29/18 0816 0235 0235 Anshul Sinha MD /GUS
--- NOTE | 2018-11-29 09:07 | NUR ---
Nutrition: Pt admitted with AMS, pyelonephritis. Seen for underweight BMI of 17.5. Admission wt of 105 lbs is incorrect. Wt has since been updated accurrately to show 142 lbs. Wt stable over a year per hx. Also at usual of 140 lbs per pt. Ross has been poor since sx started on Tuesday. Still poor this morning. Pt agreed to supplement, will order. Low nutrition risk.
[2018-11-29 14:40] VITALS: BP 128/53
--- NOTE | 2018-11-29 14:42 | NUR ---
Chart reviewed and case discussed with the care team. Bedside assessment completed with the pt. Her sister and her niece were present. Pt's spouse went home to rest. The pt reports that she lives at home with her spouse and is normally independent with gait and adl's. She has one step to enter her home and everything is on the main level. She does have a FWW and Cane from a previous hip sx last year, but she does not use them currently. She has not had hh since that time either. She can not recall her pcp's name but believes she has an appt coming up in two weeks. Her spouse drives and is supportive. The pt's family at bedside indicate she is much clearer mental than upon arrival. She is being treated for pyelonephritis. Cm role introduced. Will ask for therapy evals and follow along should hh referral be indicated at [place].
[2018-11-29 19:25] VITALS: BP 118/61
--- NOTE | 2018-11-29 20:30 | NUR ---
PT ARRIVED TO UNIT DURING SHIFT CHANGE FROM ED. PT IS ALERT AND ORIENTED, FORGFUL AT TIMES. PT IS MONITORED ON TELE AND ABLE TO MAINTAIN 02 SAT >90 ON RA. PT COMPLAINS OF PAIN THAT IS UNRESOLVED AFTER FIRST DOSE OF PAIN MEDICATION GIVEN. CONTACTED DR AND DR GAVE NEWORDERS FOR PAIN MEDICATION THAT PT DOES STATE MORE WELL CONTROLS HER PAIN THAN THE PREVIOUS DOSE. PT AND FAMILY HAVE BEEN UPDATED ON POC AND DENY ANY QUESTIONS OR CONCERNS AT THIS TIME. VSS ASSESSMENT CHARTED. MAKING GOOD PROGRESS TOWARDS POC OF DC.
[2018-11-30 03:59] VITALS: BP 104/44
--- NOTE | 2018-11-30 05:02 | NUR ---
Pt. rested quietly at intervals during the night when checked on during frequent rounds. She c/o back pain and has been medicated for it (see emar) with some relief noted. Assisted up to the bathroom with walker. Bed alarm is on.
[2018-11-30 05:42] LABS: HEMATOCRIT 30.1 % (37.0-47.0); MCH 27.7 pg (26.0-34.0); MCHC 32.5 g/dL (28.0-37.0); MCV 85.4 fL (80.0-100.0); RBC 3.53 mil/uL (4.20-5.00); RDW 18.3 % (10.5-14.5); WBC 8.2 thou/uL (4.0-11.0)
[2018-11-30 05:45] LABS: HEMOGLOBIN 9.8 gm/dL (12.0-15.0)
[2018-11-30 05:48] LABS: CALCIUM 8.1 mg/dL (8.5-10.1); CREATININE 0.7 mg/dL (0.6-1.0); MAGNESIUM 1.7 mg/dL (1.8-2.4)
[2018-11-30 07:34] VITALS: BP 114/64
[2018-11-30 14:05] VITALS: BP 128/63
--- NOTE | 2018-11-30 17:17 | NUR ---
ASSUMED CARE OF PT AT APPROX 0700. PT IS ALERT AND ORIENTED X4, FORGETFUL AT TIMES. MONITORED ON TELE AND ABLE TO MAINTAIN 02 SAT >90 ON RA. COMPLAINS OF PAIN THAT IS PARTIALLY RELIEVED BY PRN PAIN MEDICATION. DENIES SOA, EVEN NON LABORED BREATHING. RECIEVED ORDER FOR DC OF TELE. PT IS IN STABLE CONDITION. REMAINS ON IV ANTBX. ASSESSMENT CHARTED. PATIENT HAS BEEN UPDATED ON POC AND DENIES ANY CURRENT CONCERNS OR QUESTIONS. WILL CONTINUE TO MONITOR.
[2018-11-30 20:22] VITALS: BP 133/63
[2018-12-01 05:17] LABS: HEMATOCRIT 29.7 % (37.0-47.0); HEMOGLOBIN 9.8 gm/dL (12.0-15.0); MCH 27.6 pg (26.0-34.0); MCHC 32.8 g/dL (28.0-37.0); RBC 3.54 mil/uL (4.20-5.00); RDW 18.2 % (10.5-14.5); WBC 3.7 thou/uL (4.0-11.0)
[2018-12-01 05:20] VITALS: BP 108/56
[2018-12-01 05:30] LABS: CALCIUM 8.4 mg/dL (8.5-10.1); CREATININE 0.5 mg/dL (0.6-1.0)
[2018-12-01 05:32] LABS: POTASSIUM 2.6 mmol/L (3.5-5.1)
--- NOTE | 2018-12-01 05:57 | NUR ---
ASSUMED CARE OF PT AT 1900HRS. PT IS AOX4 AND WAS ABLE TO GET SOME SLEEP THIS SHIFT. NO OTHER S/S OF ACUTE DISTRESS OR CONCERNS. WILL CONTINUE TO MONITOR. PT IS PROGRESSING TOWARDS DC GOALS.
[2018-12-01 08:12] VITALS: BP 113/75
--- NOTE | 2018-12-01 16:20 | NUR ---
CARE TEAM INDICATED THAT PT WILL LIKELY BE MEDICALLY STABLE TO DISCHARGE HOME TOMORROW WITH HOME HEALTH SERVICES. PT INDICATED SHE HAD USED [facility] IN THE PAST BUT THAT SHE WASN'T SURE THAT SHE WOULD NEED IT. CM INDICATED THEY ARE RECOMMENDING HH. CM SENT REFERRAL TO [facility]. PT HAS ALL RECOMMENDED DME.
[2018-12-01 16:31] VITALS: BP 104/67
[2018-12-01 16:44] VITALS: BP 113/75
--- NOTE | 2018-12-01 18:01 | NUR ---
PATIENT SEEN BY HARMAN MONTGOMERY NP WITH DR. SON FOR CONSULT. PATIENT DOES NOT QUALIFY FOR ACUTE REHAB STAY. PATIENT AT TOO HIGH OF FUNCTIONAL LEVEL. [employer]ANCE MANAGER INFORMED. THANK YOU FOR THIS REFERRAL.
--- NOTE | 2018-12-01 19:14 | NUR ---
PATIENT STATED FEELING MUCH BETTER TODAY. MEDICATED X 1 FOR BACK PAIN AND HAD COMPLETE RELIEF. UP WITH STANDBY ASSISTANCE AND TOLERATING WELL. CONTINUED WITH IV ZOSYN FOR PYELONEPHRITIS. HAD 2 DIARRHEA STOOLS. CAN HAVE IMMODIUM PRN. VERY PLEASANT AND COOPERATIVE.
[2018-12-01 20:36] VITALS: BP 132/71
[2018-12-02 03:17] VITALS: BP 102/62
--- NOTE | 2018-12-02 05:39 | NUR ---
ASSUMED CARE OF PT AT 1900HRS. PT AOX4 AND WAS ABLE TO SLEEP PART OF THE SHIFT. PT REPORTED SOME BACK PAIN AND WAS MEDICATED. NO OTHER S/S OF ACUTE DISTRESS. ABX TREATMENT CONTINUED. WILL CONTINUE TO MONITOR.
[2018-12-02 08:00] VITALS: BP 127/78
[2018-12-02 09:15] LABS: CREATININE 0.6 mg/dL (0.6-1.0)
[2018-12-02 15:00] VITALS: BP 134/90
--- NOTE | 2018-12-02 19:32 | NUR ---
PT A&OX4, VSS, PAIN IN LOWER BACK BEING MANAGED WITH MEDICATION. PT DENIES N/V/D. PT STANDBY ASSIST TO BATHROOM. CALL LIGHT IN REACH. FAMILY AT BEDSIDE. WILL CONTINUE TO MONITOR.
[2018-12-02 20:28] VITALS: BP 133/81
[2018-12-03 03:50] VITALS: BP 141/81
--- NOTE | 2018-12-03 04:19 | NUR ---
ASSUMED CARE OF PT AT 1900HRS. PT IS AOX4 AND WAS ABLE TO GET SOME SLEEP THIS SHIFT. PT REPORTED SOME BACK PAIN AND GOT MEDICATED. NO OTHER S/S OF ACUTE DISTRESS. WILL CONTINUE TO MONITOR.
[2018-12-03 07:20] VITALS: BP 128/75
[2018-12-03 14:07] VITALS: BP 135/68
--- NOTE | 2018-12-03 18:39 | NUR ---
PT A&OX4, VSS/NO DISTRESS, PAIN IN RIGHT LOWER BACK. PT UP WITH ASSIT TO BATHROOM. ANTIBIOTICS GIVEN PER ORDERS. FALL BUNDLE IN PLACE, CALL LIGHT IN REACH, WILL CONTINUE TO MONITOR.
[2018-12-03 19:21] VITALS: BP 145/80
[2018-12-04 04:38] VITALS: BP 125/60
--- NOTE | 2018-12-04 05:01 | NUR ---
ASSUMED CARE OF PT AT 1900HRS. PT AOX4 AND WAS ABLE TO SLEEP PART OF THE SHIFT. PT DID REPORT SOME LOWER BACK PAIN AND WAS TREATED WITH MEDICATION NEEDED. NO OTHER S/S OF ACUTE DISTRESS. PEÑA CONTINUE TO MONITOR. POSSIBLE DC IN THE AM.
[2018-12-04 05:54] LABS: HEMATOCRIT 34.8 % (37.0-47.0); HEMOGLOBIN 11.3 gm/dL (12.0-15.0); MCH 27.5 pg (26.0-34.0); MCHC 32.4 g/dL (28.0-37.0); MCV 84.7 fL (80.0-100.0); RBC 4.11 mil/uL (4.20-5.00); RDW 19.4 % (10.5-14.5); WBC 4.8 thou/uL (4.0-11.0)
[2018-12-04 06:08] LABS: CALCIUM 9.5 mg/dL (8.5-10.1); CREATININE 0.7 mg/dL (0.6-1.0); POTASSIUM 3.8 mmol/L (3.5-5.1)
[2018-12-04 08:00] VITALS: BP 135/81
[2018-12-04] MEDS ORDERED: LEVAQUIN 500 M500 M2 PO (12:16)
[2018-12-04] MEDS ORDERED: HYDROCODON-ACE1 EAC7 PO (13:17)
--- NOTE | 2018-12-04 15:32 | NUR ---
Received awake on bed. On room air. Due medications given as prescribed. Patient complained of nausea and pain, due medications given as prescibed, patient relieved. Seen by DR. Bishop, may go home. Discharge instructions given, prescription given, IV removed. Patient asked for prescription of pain killers- Dr. Bishop informed, prescription given to patient. Went home with . CM informed regarding discharge.
== END 2018-12-04 16:36 | disposition home health service (06) | DRG 871 ==
LOC: ER 02:31 → 4W 04:10 → EROBS 04:10 → 4W 06:00 → ENTRNSPT 12-04 14:59 → 4W 12-04 16:36
PROVIDERS: Emergency Medicine; Hospitalist; Nurse Practitioner Acute Care; ADMIT Hospitalist
DX: A41.9 Sepsis, unspecified organism (principal); G92 Toxic encephalopathy; N10 Acute pyelonephritis; K51.90 Ulcerative colitis, unspecified, without complications; Q60.0 Renal agenesis, unilateral; E87.6 Hypokalemia; F41.9 Anxiety disorder, unspecified; M06.9 Rheumatoid arthritis, unspecified; R26.9 Unspecified abnormalities of gait and mobility; Z96.641 Presence of right artificial hip joint; Z90.5 Acquired absence of kidney; Z88.2 Allergy status to sulfonamides; Z90.49 Acquired absence of other specified parts of digestive tract; Z90.710 Acquired absence of both cervix and uterus; Z79.899 Other long term (current) drug therapy; Z90.721 Acquired absence of ovaries, unilateral
CPT/HCPCS: 10045; 10047